=== PATIENT | male | born 1965 | race Caucasian/White ===

== ENCOUNTER 2022-07-17 14:57 | Emergency (ER) | payer OTHER ==
[~2022-07-17] VITALS: Ht 172.7 cm; Wt 110.6 kg
== END 2022-07-17 17:56 | disposition home or self-care (01) ==
LOC: ED 14:57
DX: S46.912A Strain of unspecified muscle, fascia and tendon at shoulder and upper arm level, left arm, initial encounter (principal); I10 Essential (primary) hypertension; X50.9XXA Other and unspecified overexertion or strenuous movements or postures, initial encounter
CPT/HCPCS: 73030; 80053; 83605; 85025; 87040; 87502; 99283-25; A9270; U0003